=== PATIENT | male | born 1980 | race Caucasian/White ===

== ENCOUNTER 2021-06-16 08:43 | Day surgery (SDC) | payer BC ==
[~2021-06-16 08:43] MED LIST: Lactated Ringers 1,000 ML IV SCH; Sodium Chloride 0.9% 10 ML Syringe FLUSH PRN; Sodium Chloride 0.9% 2.5 ML Syringe FLUSH PRN; Sodium Chloride 0.9% 20 ML SDV IV PRN
--- NOTE | 2021-06-16 09:26 | PCM.PREANE ---
Preanesthetic Assessment - Procedure Proposed Procedure: EGD - Anesthesia/Transfusion/Family Hx Anesthesia History: Prior Anesthesia Without Reaction Family History of Anesthesia Reaction: No Transfusion History: No Prior Transfusion(s) - Review of Systems General: No Symptoms Pulmonary: No Symptoms Cardiovascular: No Symptoms Gastrointestinal: No Symptoms (GERD well controlled until last 4-5 weeks) Neurological: No Symptoms Other: Reports: None, Anxiety - Physical Assessment NPO Status Date: 06/15/21 NPO Status Time: 15:30 Vital Signs: Last Vital Signs Temp 97.5 F 06/16/21 09:00 Pulse 91 06/16/21 09:00 Resp 14 06/16/21 09:00 BP 148/96 H 06/16/21 09:00 Pulse Ox 97 06/16/21 09:00 Height: 5 ft 6 in Weight: 105.233 kg ASA Class: 2 Mental Status: Alert & Oriented x3 Airway Class: Mallampati = 2 Dentition: Reports: Normal Dentition Thyro-Mental Finger Breadths: 0 Mouth Opening Finger Breadths: 0 ROM/Head Extension: Full Lungs: Clear to Auscultation, Normal Respiratory Effort Cardiovascular: Regular Rate, Regular Rhythm - Allergies Allergies/Adverse Reactions: Allergies Allergy/AdvReac Type Severity Reaction Status Date / Time Sulfa (Sulfonamide Allergy Cannot Verified 06/15/21 10:50 Antibiotics) Remember - Acknowledgements Anesthesia Type Planned: General Anesthesia Pt an Appropriate Candidate for the Planned Anesthesia: Yes Alternatives and Risks of Anesthesia Discussed w Pt/Guardian: Yes Pt/Guardian Understands and Agrees with Anesthesia Plan: Yes PreAnesthesia Questionnaire HEENT History: Reports: None Cardiovascular History: Reports: None Respiratory History: Reports: None Gastrointestinal History: Reports: GERD Genitourinary History: Reports: None Musculoskeletal History: Reports: Fracture Other Musculoskeletal History: fx arms as a child Neurological History: Reports: None Psychiatric History: Reports: Anxiety Endocrine/Metabolic History: Reports: Obesity/BMI 30+ Hematologic History: Reports: None Immunologic History: Reports: None Oncologic (Cancer) History: Reports: None Dermatologic History: Reports: None - Past Surgical History Head Surgeries/Procedures: Reports: None HEENT Surgical History: Reports: Eye Surgery, Oral Surgery Other HEENT Surgeries/Procedures: eye surgery as a child, wisdom teeth extration Cardiovascular Surgical History: Reports: None Respiratory Surgical History: Reports: None GI Surgical History: Reports: None Male Surgical History: Reports: None Endocrine Surgical History: Reports: None Neurological Surgical History: Reports: None Musculoskeletal Surgical History: Reports: None Oncologic Surgical History: Reports: None Dermatological Surgical History: Reports: None - SUBSTANCE USE Tobacco Use Status *Q: Never Tobacco User - HOME MEDS Home Medications: Home Meds FLUoxetine [PROzac] 10 mg PO DAILY 06/15/21 [History] Famotidine [Pepcid] 20 mg PO BID 06/15/21 [History] Fluticasone Propionate [Flonase Allergy Relief] 1 spray NASBOTH ASDIRECTED PRN 06/15/21 [History] Pantoprazole Sodium [Protonix] 40 mg PO DAILY 06/15/21 [History] - CURRENT (IN HOUSE) MEDS Current Meds: Current Medications Lactated Ringer's (Ringers, Lactated) 1,000 mls @ 125 mls/hr IV ASDIRECTED FINN Last Admin: 06/16/21 09:04 Dose: 125 mls/hr Documented by: Sodium Chloride (Sodium Chloride 0.9% 10 Ml Syringe) 10 ml FLUSH ASDIRECTED PRN PRN Reason: Keep Vein Open Sodium Chloride (Sodium Chloride 0.9% 2.5 Ml Syringe) 2.5 ml FLUSH ASDIRECTED PRN PRN Reason: Keep Vein Open Sodium Chloride (Sodium Chloride 0.9% 10 Ml Syringe) 10 ml FLUSH ASDIRECTED PRN PRN Reason: Keep Vein Open Sodium Chloride (Sodium Chloride 0.9% 2.5 Ml Syringe) 2.5 ml FLUSH ASDIRECTED PRN PRN Reason: Keep Vein Open Sodium Chloride (Sodium Chloride 0.9% 20 Ml Sdv) 10 ml IV ASDIRECTED PRN PRN Reason: IV Use
[2021-06-16] MEDS ORDERED: Lidocaine 2% 5 ML SDV ONE (09:27)
[2021-06-16] MEDS ORDERED: Propofol 200 MG/20 ML SDV ONE (09:27)
[2021-06-16] MEDS ORDERED: fentaNYL 100 MCG/2 ML SDV ONE (09:27)
[2021-06-16] MEDS ORDERED: Ketamine 500 mg/10 ML MDV ONE (10:10)
--- NOTE | 2021-06-16 10:32 | PCM.POSTAN ---
POST ANESTHESIA ASSESSMENT - MENTAL STATUS Mental Status: Alert, Oriented - VITAL SIGNS Vital Signs: Last Vital Signs Temp 97.7 F 06/16/21 10:26 Pulse 101 H 06/16/21 10:26 Resp 19 06/16/21 10:26 BP 128/99 H 06/16/21 10:26 Pulse Ox 95 06/16/21 10:26 - RESPIRATORY Respiratory Status: Respiratory Rate WNL, Airway Patent, O2 Saturation Stable - CARDIOVASCULAR CV Status: Pulse Rate WNL, Blood Pressure Stable - GASTROINTESTINAL GI Status: No Symptoms - PAIN Pain Score: 0 - POST OP HYDRATION Hydration Status: Adequate & Stable
--- NOTE | 2021-06-16 10:39 | PCM48HPAN ---
Post Anesthesia Note - EVALUATION WITHIN 48HRS OF ANESTHETIC Vital Signs in Normal Range: Yes Patient Participated in Evaluation: Yes Respiratory Function Stable: Yes Airway Patent: Yes Cardiovascular Function Stable: Yes Hydration Status Stable: Yes Pain Control Satisfactory: Yes Nausea and Vomiting Control Satisfactory: Yes Mental Status Recovered: Yes Vital Signs: Last Vital Signs Temp 97.7 F 06/16/21 10:26 Pulse 85 06/16/21 10:36 Resp 14 06/16/21 10:36 BP 117/65 06/16/21 10:36 Pulse Ox 94 L 06/16/21 10:36 - COMMENTS/OBSERVATIONS Free Text/Narrative:: Pt doing well post-op. VSS. No apparent anesthetic complications. Dr. Jem Hudson
--- NOTE | 2021-06-16 10:39 | PCM.OPNOTE ---
- General Post-Op/Procedure Note Date of Surgery/Procedure: 06/16/21 Operative Procedure(s): Diagnostic EGD Findings: Normal appearing EGD other than small hiatal hernia with reflux Pre Op Diagnosis: Heartburn, hiatal hernia Post-Op Diagnosis: Hiatal hernia with gerd Anesthesia Technique: ELIA Primary Surgeon: Yael Blank Condition: Good
--- NOTE | 2021-06-16 17:25 | OR ---
SURGEON: YAEL BLANK MD DATE OF PROCEDURE: 06/16/2021 PREOPERATIVE DIAGNOSES: Dysphagia, heartburn. POSTOPERATIVE DIAGNOSIS: Hiatal hernia with gastroesophageal reflux disease. PROCEDURE PERFORMED: Diagnostic esophagogastroduodenoscopy with biopsies. PRIMARY SURGEON: Yael Blank MD ANESTHESIA: MAC. INSTRUMENT USED: Olympus endoscope. EXTENT OF EXAM: To the second portion of the duodenum. PREPARATION: Good. LIMITATIONS: None. INDICATIONS FOR EXAMINATION: The patient is a 40-year-old male who presents with a six-week history of severe heartburn and reflux. He underwent an esophagram which showed a small sliding hiatal hernia associated with GERD. The patient and I discussed the need for diagnostic EGD. I explained the procedure, expected perioperative course, and the risks. He verbalized understanding and wishes to proceed. PROCEDURE IN DETAIL: Patient was brought in to the endoscopy suite and placed in a left lateral decubitus position. A time-out was completed verifying the patient's name, age, date of , allergies, and procedure to be performed. Monitored anesthesia care was induced and continuous oxygen was provided via face mask throughout the procedure. After adequate sedation was achieved, a well-lubricated endoscope was placed in the patient's mouth through a bite block and advanced under direct visualization to the second portion of the duodenum. This appeared normal and a photograph was taken. The scope was then fully withdrawn while examining the color, texture, anatomy, and integrity of the mucosa of the upper GI tract. The duodenum appeared normal. A biopsy was taken in the duodenal bulb and sent to Pathology labeled as duodenum for histologic review. The scope was brought into the stomach and a photograph was taken of the pylorus and GE junction. At the GE junction, I noticed a small hiatal hernia. A photograph of both the pylorus and the GE junction were taken. Biopsies were taken of the gastric antrum, body, and fundus and sent for histologic review and H pylori testing. I saw no evidence of gross inflammation or ulceration. The scope was brought into the distal esophagus. The patient's hiatal hernia was only 2 or 3 cm long. A photograph of this was taken. The Z-line appeared grossly normal. Biopsies were taken above the Z-line and sent to Pathology for histologic review. There was no evidence of gross ulceration or inflammation of the distal esophagus. The remainder of the esophagus was free of pathology. The scope was removed and the procedure terminated. The patient tolerated the procedure well and was transferred to the PACU in stable condition. ENDOSCOPIC DIAGNOSIS: Hiatal hernia with gastroesophageal reflux disease. RECOMMENDATIONS: Follow up in clinic in two weeks. The patient can continue to take his PPI medication for now. JOLANTA TABOR /[id number]
== END 2021-06-16 11:04 | disposition home or self-care (01) ==
LOC: MW.SDS 08:43
PROVIDERS: ATTEND Surgery
DX: K31.7 Polyp of stomach and duodenum (principal); K31.89 Other diseases of stomach and duodenum; K44.9 Diaphragmatic hernia without obstruction or gangrene; E66.9 Obesity, unspecified; Z79.899 Other long term (current) drug therapy; Z88.2 Allergy status to sulfonamides; Z98.890 Other specified postprocedural states; Z68.37 Body mass index [BMI] 37.0-37.9, adult
CPT/HCPCS: 43239; J2704; J3010; J7120; 00731